=== PATIENT | female | born 1995 | race Caucasian/White ===

== ENCOUNTER 2020-07-07 18:45 | Emergency (ER) | payer BC, MEDICAID ==
[~2020-07-07] VITALS: Ht 157.5 cm; Wt 45.8 kg
[2020-07-07 18:55] VITALS: BP_SYST 139
[2020-07-07 20:50] VITALS: BP_SYST 142
== END 2020-07-07 20:50 | disposition home or self-care (01) ==
LOC: SED 18:45
DX: M79.605 Pain in left leg (principal)
CPT/HCPCS: 81025; 93971; 99284